=== PATIENT | male | born 1960 | race Two or more races ===

== ENCOUNTER 2017-02-13 05:23 | Day surgery (SDC) | payer MEDICAID, OTHER ==
[~2017-02-13] VITALS: Ht 172.7 cm; Wt 80.5 kg
[2017-02-13] VITALS (12 sets, daily range): BP systolic 106–160; BP diastolic 74–97; PULSE 63–92; RESP 10–24; O2SAT 92–100
[~2017-02-13 05:23] MED LIST: CYCL10TA9 PO; IBUP-1827 PO; Lactated Ringer's 1,000 ML IV ONE; homeopathic med
[2017-02-13] MEDS ORDERED: fentaNYL-PF 50 mCg/mL 2 mL Inj ONE (05:24)
[2017-02-13] MEDS ORDERED: Propofol 10,000 mCg/mL 20 mL Inj ONE (05:24)
[2017-02-13] MEDS ORDERED: Ondansetron 2 mg/mL 2 mL Inj ONE (05:24)
[2017-02-13] MEDS ORDERED: MetoCLOpramide 5 mg/mL 2 mL Inj ONE (05:24)
[2017-02-13] MEDS ORDERED: Labetalol 5 mg/mL 20 mL Inj ONE (05:24)
[2017-02-13] MEDS ORDERED: Rocuronium 10 mg/mL 5 mL Inj ONE (05:24)
[2017-02-13] MEDS ORDERED: Neostigmine 1 mg/mL 10 mL Inj ONE (05:24)
[2017-02-13] MEDS ORDERED: Glycopyrrolate 0.2 MG/ML 1mL Inj ONE (05:24)
[2017-02-13] MEDS ORDERED: HYDROmorphone 2 mg/mL Inj ONE (05:24)
[2017-02-13] MEDS ORDERED: Vancomycin 1,000mg/200 mL NS IV ONE (05:34)
[2017-02-13] MEDS ORDERED: Bupivacaine Liposome 1.3% 20 mL Inj INFILTRATE SCH (06:00)
[2017-02-13] MEDS ORDERED: Vancomycin Inj 1,250 MG in 0.9% Sodium Chloride 250 ML IV ONE (06:00)
[2017-02-13] MEDS ORDERED: CeFAZolin Inj 2 GM in IV Premix 1 EACH IV ONE (06:00)
[2017-02-13] MEDS ORDERED: Lactated Ringer's 1,000 ML IV ONE (06:07)
[2017-02-13] MEDS ORDERED: Tranexamic Acid 100 mg/mL 10 mL Inj ONE (07:27)
[2017-02-13] MEDS ORDERED: 0.9% Sodium Chloride 100 ML ONE (07:28)
--- NOTE | 2017-02-13 07:41 | PCM.HPANE ---
Patient Data Surgeon Admitting Provider: Attending Provider:Román Mercer MD Primary Care Physician:Stephanie Falcon MD Other Provider:[facility] Reason for Visit Left Knee Arthritis Ht/WT & BMI Height (Feet): 5 Height (Inches): 8.00 Weight (Kilograms): 80.550 Body Mass Index 26.00 Allergies Coded Allergies: No Known Allergies (Unverified Allergy, Unknown, 09/07/14) Diabetes History Hx Diabetes?: Yes (TYPE II) Type of Diabetes: Type II Glycemic Control: Oral Medication Current Bedside Blood Glucose: 182 Medications Hypertension Medication: No Home Meds Incl Beta Geovanny: No Reported Medications [homeopathic med] unknown No Conflict CheckUnknown Dose DAILY 02/08/17 Ibuprofen 600 Mg [id number] Mg PO QID PRN For Pain Ref 0 02/08/17 Cyclobenzaprine 10 Mg [id number] Mg PO TID PRN Spasm 02/08/17 History History of ENT Problems?: No Hx of Heart Problems?: No Cardiovascular History: Denies:: Congestive Heart Failure Hypertension Hx of Respiratory Problem?: No Respiratory History: Denies:: Oxygen Administration Pneumonia Tuberculosis Use of C-PAP Machine Hx Neurologic Problems?: No Hx of GI Problems?: No Hx of Problems?: No Hx Musculoskeletal Problems?: Yes Musculoskeletal History: Positive for:: Musculoskeletal Trauma (left knee current admission problem) Osteoarthritis Hx of Psycho/Social Problems?: No Hx Surgeries?: No Hx Any Other Health Problems?: Yes Other History: Denies:: Cancer Thyroid Disease Hx Diabetes: Yes (TYPE II)Bedside Blood Glucose: 182 Hx Alcohol Use: Yes (occ.)Hx Substance Use: No Smoking Status: Former Smoker Have You Smoked inLast 12 mo: No Stop/Bang S-Snoring: Do You Snore Loudly: Yes T-Tired: feel tired, fatigued: No O-Obsered: Observed not breath: No P-Blood Pressure: treated: No B- Body Mass Index > 35 kg/m2: No A- Age over 50: Yes N- Neck Large Circumference: No G- Gender Male: Yes WILD Total Score: 3 WILD Risk Assessment: High Risk, =/>3 Yes Risk Assessment Category Category 1A: Patient has history of documented sleep apnea, and HAS NOT received any narcotic, sedative or anesthesia administration during this stay. Category 1B: Patient has history of documented sleep apnea, and HAS received any narcotic , sedative or anesthesia administration during this stay Category 2: Patient has SUSPECTED Obstructive Sleep Apnea, and HAS received any narcotic , sedative or anesthesia administration during this stay. Category 3: Patient has SUSPECTED Obstructive Sleep Apnea and HAS NOT received narcotic, sedative or anesthesia administration during this stay. Category 4: Outpatient in Procedural Areas with known sleep apnea or who screen positive for High Risk via the STOP/BANG questionnaire. Exam Exam Vital Signs Vital Signs Date Time Temp Pulse Resp B/P Pulse Ox O2 Delivery O2 Flow Rate FiO2 02/13/17 06:08 36.5 65 14 153/85 96 Room Air General Appearance: Alert, Oriented X3, Cooperative, No Acute Distress HEENT/AIRWAY: MP 2 Lungs: Clear to Auscultation, Normal Air Movement Heart: Exam Unremarkable, Regular Rate/Rhythm, No Murmurs/Rubs/Gallops Meds/Labs/Diagnostics Admission Meds Current Medications Lactated Ringer's (Lr) 1,000 ml @ ud STK-MED ONCE IV Last administered on 02/13t 06:07; Start 02/13/17 at 06:07; Stop 02/13/17 at 06:08; Status DC Bedside Blood Glucose: 182 Plan Impression Patient chart reviewed, patient interviewed and anesthestic plan with risks, benefits, and alternatives discussed, and informed consent obtained. NPO Status: 02/12/17@1999 ASA Physical Status: ASA2 Mod Systemic Disease Anesthetic Plan: GA (possible TKA, plan AC block in PACU if total done) Bene/Risks/Altern/Consents: Yes HP Complete Prior to Induction: Yes Rodney Ball MD Feb 13, 2017 07:04
[2017-02-13] MEDS ORDERED: Lactated Ringer's 500 ML IV PRN (07:58)
[2017-02-13] MEDS ORDERED: Lactated Ringer's 1,000 ML IV SCH (07:58)
[2017-02-13] MEDS ORDERED: MetoCLOpramide 5 mg/mL 2 mL Inj IVPUSH PRN (08:00)
[2017-02-13] MEDS ORDERED: Ondansetron 2 mg/mL 2 mL Inj IVPUSH PRN (08:00)
[2017-02-13] MEDS ORDERED: Labetalol 5 mg/mL 4 mL Inj IV PRN (08:00)
[2017-02-13] MEDS ORDERED: Atropine 0.4 mg/mL Inj IVPUSH PRN (08:00)
[2017-02-13] MEDS ORDERED: Phenylephrine 10,000 mCg/mL Inj IVPUSH PRN (08:00)
[2017-02-13] MEDS ORDERED: EPHEDrine Sulfate 50 mg/mL Inj IVPUSH PRN (08:00)
[2017-02-13] MEDS ORDERED: HYDROmorphone 1 mg/mL Inj IVPUSH PRN (08:00)
[2017-02-13] MEDS ORDERED: Bupivacaine-MPF 0.25%/EPI 30 mL Inj INJ ONE (08:17)
[2017-02-13] MEDS ORDERED: Gentamicin 40 mg/mL 2 mL Inj IRRIGATION ONE (08:17)
[2017-02-13] MEDS ORDERED: Bupivacaine Liposome 1.3% 20 mL Inj INFILTRATE ONE (08:17)
[2017-02-13] MEDS: fentaNYL-PF 50 mCg/mL 2 mL Inj IVPUSH PRN ×2 (09:34→09:44)
--- NOTE | 2017-02-13 10:09 | PCM.ANEP1 ---
Post Anesthesia Phase 1 PACU Phase 1 Assessment Vital Signs Vital Signs Date Time Temp Pulse Resp B/P Pulse Ox O2 Delivery O2 Flow Rate FiO2 02/13/17 09:50 68 12 145/90 95 Room Air 02/13/17 09:30 36.5 63 12 146/97 100 Simple Mask 10 02/13/17 09:25 65 12 160/79 100 Simple Mask 10 02/13/17 09:20 73 24 152/89 100 Simple Mask 10 02/13/17 09:17 37.0 155/81 02/13/17 06:08 36.5 65 14 153/85 96 Room Air Level of Alertness: Awake, talking DELEON's with Equal Strength: Yes Pain: No Nausea or Vomiting: No Oxygen Delivery: Simple Mask Lungs: Clear to Auscultation, Normal Air Movement Rodney Ball MD Feb 13, 2017 10:09
--- NOTE | 2017-02-13 10:15 | PCM.ANEP2 ---
Post Anesthesia Evaluation ASA/CMS Post Anesthesia VS in Patient's Normal Range?: Yes Resp Stable; Airway Patent?: Yes CV Function & Hydration Stable: Yes Mental Status Recovered?: Yes Pain control Satisfactory?: Yes N/V Control Satisfactory?: Yes Rodney Ball MD Feb 13, 2017 10:15
--- NOTE | 2017-02-13 10:40 | DRSVH ---
PROCEDURE: X-RAY LEFT KNEE, ONE OR TWO VIEWS ([id number]) INDICATIONS: POST LEFT UNI KNEE TECHNIQUE: 2 view(s) of the knee acquired. COMPARISON: None. FINDINGS: Bones: There is a tiny arthroplasty in the medial femorotibial compartment. Hardware components are in expected positions. Visualized bony structures are intact. Soft tissues: Overlying postoperative changes are noted. IMPRESSION: Left knee hemiarthroplasty with prosthesis in anatomic alignment. Dictated by: Tabatha Tinsley M.D. on 02/13/2017 at 10:38 Approved by: Tabatha Tinsley M.D. on 02/13/2017 at 10:39
[2017-02-13] MEDS ORDERED: hydrOXYzine Pamoate 25 mg Capsule ONE (11:03)
[2017-02-13] MEDS: oxyCODONE-Acetamin 5-325 mg Tablet PO PRN ×2 (11:10→15:11)
--- NOTE | 2017-02-14 06:57 | OP ---
[address] [address] OPERATIVE REPORT PATIENT: HARITHA LIGHT : 1960 MR#: [id number] ADMIT: 02/13/2017 JOB ID: [id number] DATE OF SURGERY: 02/13/2017 PREOPERATIVE DIAGNOSIS(ES): Advanced medial compartment osteoarthritis, possible lateral compartment osteoarthritis. POSTOPERATIVE DIAGNOSIS(ES): Isolated medial compartment arthritis. PROCEDURE: 1. Diagnostic arthroscopy to determine appropriateness for unicompartmental knee versus total knee replacement. 2. Left unicompartmental knee replacement. SURGEON: Román Mercer MD. FILM EXAMINER: Clarice Wells PA-C. Train Caller required due to the major complexity of the operation. INDICATIONS: This gentleman has had severe progressive osteoarthritis symptoms uncontrolled by conservative treatment. He elects to proceed with unicompartmental knee arthroplasty. He understands and accepts the potential for risks and complications, which include, but are not limited to infection, thromboembolic, neurovascular events, as well as potential for progressive arthritis in unresurfaced compartments. Understanding these, he wishes to proceed. Informed consent obtained in the presence of an financial aids officer and his son due to the patient's primary language not being Kosovan. PROCEDURE: An anteromedial portal was utilized to perform a diagnostic arthroscopy. Advanced medial compartment osteoarthritis was encountered. Following this, attention was turned to the lateral compartment where mild fraying felt to be mechanically insignificant of the lateral meniscus was encountered. The decision was made to proceed with unicompartmental knee arthroplasty. The arthroscope was then removed from the knee and the knee was fully lavaged. Anteromedial approach was subsequently made to the knee. The alignment apparatus was assembled and a tibial cut was made. The spacer block 9 mm was used and flexion-extension gap checks were performed, and decision was made to proceed with a 9 mm block which was fixed to the femur and a distal femoral cut was made. The femur was subsequently sized to a #7 femoral component which was fixed in appropriate position. Rotation, drill holes and chamfer cuts were made. Bone fragments removed. All meniscal tissue and osteophytes were removed. The tibia was sized to an F, provisionally fixed. Trial reduction was performed and a 9 mm polyethylene was chosen. Wounds were irrigated with sterile irrigant. Pressurized lavage was followed by pressurized cementation. Excess cement was removed during the curing process. Final construct assembled. Excellent flexion, extension, balance and range of motion was confirmed. Tourniquet let down. Hemostasis achieved over deep Hemovac drain. Deep fascia closed with #2 Vicryl, followed by 2-0, 3-0, and a 4-0 intracuticular stitch. Steri-Strips were applied. The patient was returned to recovery room in stable condition. She tolerated the procedure well. There were no complications. Standard postoperative course recommended.
== END 2017-02-13 23:59 | disposition home or self-care (01) ==
LOC: SAS 05:23
PROVIDERS: ATTEND Orthopaedic Surgery
DX: M17.12 Unilateral primary osteoarthritis, left knee (principal); E11.9 Type 2 diabetes mellitus without complications
CPT/HCPCS: 27446; 73560; C1713; C1776; J0131; J0690; J1170; J1580; J1885; J2405; J2710; J2765; J3010; J7120; Q0177